=== PATIENT | female | born 1990 | race Caucasian/White ===

== ENCOUNTER 2018-05-09 01:35 | Inpatient (IN) | payer OTHER ==
[~2018-05-09] VITALS: Ht 157.5 cm; Wt 68.9 kg
[~2018-05-09 01:35] MED LIST: IBUP-2070 PO; PREN1TAB80 PO
[2018-05-09] MEDS ORDERED: RINGERS SOLUTION,LACTATED 1,000 ML IV SCH ×2 (01:49→02:30)
[2018-05-09] MEDS ORDERED: OXYTOCIN 20 UNITS/LACT RINGERS 1,000 ML IV ONE (01:49)
[2018-05-09] MEDS ORDERED: LACT RINGERS IV ONE (01:50)
[2018-05-09] MEDS ORDERED: OXYTOCIN IV ONE (01:50)
[2018-05-09] MEDS ORDERED: RINGERS SOLUTION,LACTATED 1,000 ML IV ONE ×2 (01:50→02:31)
[2018-05-09] MEDS ORDERED: OXYTOCIN 30 UNITS/LACT RINGERS 500 ML IV ONE ×3 (01:53→02:30)
[2018-05-09] MEDS ORDERED: TERBUTALINE SULFATE 1 MG/ML VIAL SQ PRN (02:00)
[2018-05-09] MEDS ORDERED: METOCLOPRAMIDE HCL 5 MG/ML 2 ML VIAL IVP PRN (02:00)
[2018-05-09] MEDS ORDERED: LIDOCAINE/PF 1% 30 ML VIAL INJ PRN (02:00)
[2018-05-09] MEDS ORDERED: AMPICILLIN SODIUM 2 GM/NS 100 ML IV ONE (02:00)
[2018-05-09] MEDS ORDERED: CITRIC ACID/SODIUM CITRATE 30 ML SOLUTION UDCUP PO PRN (02:00)
[2018-05-09] MEDS ORDERED: MISOPROSTOL 25 MCG TABLET VG SCH (02:30)
[2018-05-09] MEDS ORDERED: BENZOCAINE 20%/MENTHOL 56 GM SPRAY CANISTER TP PRN ×2 (02:30→02:45)
[2018-05-09] MEDS ORDERED: LANOLIN 7 GM OINTMENT TP PRN ×2 (02:30→02:45)
[2018-05-09] MEDS ORDERED: ONDANSETRON HCL 4 MG/2 ML VIAL IVP PRN (02:30)
[2018-05-09] MEDS ORDERED: DiphenhydrAMINE HCL 50 MG/ML VIAL IVP PRN (02:30)
[2018-05-09] MEDS ORDERED: IBUPROFEN 600 MG TABLET PO PRN (02:30)
[2018-05-09] MEDS ORDERED: OxyCODONE HCL/ACETAMINOPHEN 5-325 MG TABLET PO PRN ×4 (02:30→02:45)
[2018-05-09] MEDS ORDERED: MEASLES/MUMPS/RUBELLA VACCINE, LIVE 0.5 ML/VIAL SQ ONE ×2 (02:30→02:45)
[2018-05-09] MEDS ORDERED: RINGERS SOLUTION,LACTATED 1,000 ML IV PRN (02:30)
[2018-05-09] MEDS ORDERED: GLYCERIN/WITCH HAZEL LEAF 40 PADS JAR TP PRN ×2 (02:30→02:45)
[2018-05-09] MEDS ORDERED: NALBUPHINE HCL 10 MG/ML VIAL IVP PRN (02:30)
[2018-05-09 04:44] LABS: BASOPHILS % (AUTO) 0.5 % (0.0-2.0); EOSINOPHILS % (AUTO) 0.2 % (1.0-6.0); HEMATOCRIT 39.1 % (36-46); HEMOGLOBIN 13.4 g/dL (12.0-16.0); LYMPHOCYTES # (AUTO) 0.6 K/uL (1.0-4.8); LYMPHOCYTES % (AUTO) 5.6 % (22.0-44.0); MEAN CORPUSCULAR HEMOGLOBIN 28.9 pg (26.0-34.0); MEAN CORPUSCULAR HGB CONC 34.2 G/dL (31.0-37.0); MEAN CORPUSCULAR VOLUME 85 fL (80-100); MONOCYTES # (AUTO) 0.4 K/uL (0.1-1.0); MONOCYTES % (AUTO) 3.3 % (2.0-9.0); NEUTROPHILS # (AUTO) 10.5 K/uL (1.8-7.7); PLATELET COUNT (AUTO)-OB 248 K/uL (150-450); RED BLOOD CELL COUNT(AUTO) 4.63 MIL/uL (4.00-5.20); RED CELL DISTRIBUTION WIDTH 12.7 % (11.5-14.5)
[2018-05-09 04:45] LABS: NEUTROPHILS % (AUTO) 90.4 % (40.0-70.0)
[2018-05-09] MEDS ORDERED: AMPICILLIN SODIUM 1 GM/NS 50 ML IV SCH (06:00)
[2018-05-09] MEDS ORDERED: MAGNESIUM HYDROXIDE SUSPENSION 30 ML UDCUP PO SCH (09:00)
[2018-05-09] MEDS: MAGNESIUM HYDROXIDE SUSPENSION 30 ML UDCUP PO SCH ×2 (12:24→21:00)
[2018-05-09] MEDS: IBUPROFEN 600 MG TABLET PO PRN (22:58)
[2018-05-10] MEDS: MAGNESIUM HYDROXIDE SUSPENSION 30 ML UDCUP PO SCH (07:56)
[2018-05-10] MEDS: IBUPROFEN 600 MG TABLET PO PRN (07:56)
== END 2018-05-10 12:20 | disposition home or self-care (01) | DRG 560 ==
LOC: 4S 01:35 → OBSVTOIN 01:35
PROVIDERS: ADMIT Obstetrics & Gynecology; ATTEND Obstetrics & Gynecology
PROC: 10E0XZZ Delivery of Products of Conception, External Approach (ICD-10-PCS; principal; 2018-05-09)
DX: O80 Encounter for full-term uncomplicated delivery (principal); Z37.0 Single live birth; Z3A.39 39 weeks gestation of pregnancy
CPT/HCPCS: 86850; 86900; 86901; 90686; J0290; J2590; J3490; J7120